=== PATIENT | male | born 1940 | race Caucasian/White ===

== ENCOUNTER 2017-05-11 16:17 | Emergency (ER) | payer MEDICARE, MEDICAID ==
[2015-01-25 13:31] VITALS: BMI 31.5
[~2017-05-11 16:17] MED LIST: ACETAMINOPHEN325 MG PO; ARICEPT10 MG PO; CELEXA10 MG PO; DYAZIDE 37.5/251 CAP PO; MEDROL DOSE PACK4 MG PO; PRILOSEC20 MG PO; PROTONIX40 MG PO; RISPERDAL0.5 MG PO; SINEMET 10/101 UDTAB PO; VITAMIN B-121000 MCG PO; VITAMIN D31000 UNI2 PO; VITAMIN D31000 UNIT PO
[2017-05-11 17:53] LABS: BASOPHILS 0.6 % (0-2); EOSINOPHILS 2.7 % (0-7); HEMATOCRIT 38.8 % (42.0-54.0); HEMOGLOBIN 12.7 g/dL (13.5-17.5); IMMATURE GRANULOCYTES 0.7 % (0-5); LYMPHOCYTES 20.4 % (15-50); MCH 30.9 pg (26.0-34.0); MCHC 32.7 g/dL (31.0-37.0); MCV 94.4 fL (80.0-100.0); MEAN PLATELET VOLUME 10.1 fL (7.4-10.4); MONOCYTES 12.3 % (2-11); NEUTROPHILS 63.3 % (40-80); RBC 4.11 10x6/uL (4.20-6.10); RDW 12.8 % (11.5-14.5); WBC 10.2 10x3/uL (4.8-10.8)
[2017-05-11 17:58] LABS: PLATELET COUNT 294 10x3/uL (130-400)
[2017-05-11 18:11] LABS: ALBUMIN 3.3 g/dL (3.4-5.0); ANION GAP 13.2 mmol/L (8-16); BILIRUBIN - TOTAL 0.23 mg/dL (0.2-1.3); CALCIUM 8.9 mg/dL (8.5-10.1); CARBON DIOXIDE 26.2 mmol/L (21.0-32.0); CREATININE - SERUM 1.7 mg/dL (0.6-1.3); POTASSIUM - SERUM 4.4 mmol/L (3.5-5.1); PROTEIN - SERUM 6.9 g/dL (6.4-8.2)
[2017-05-11 18:35] LABS: APPEARANCE CLEAR (CLEAR); BILIRUBIN NEGATIVE (NEGATIVE); COLOR YELLOW (YELLOW); GLUCOSE NEGATIVE (NEGATIVE); KETONE NEGATIVE (NEGATIVE); NITRITE NEGATIVE (NEGATIVE); PROTEIN NEGATIVE (NEGATIVE); SPECIFIC GRAVITY 1.025 (1.005-1.020); UROBILINOGEN NORMAL (NORMAL)
[2017-05-11 18:38] LABS: BACTERIA FEW /hpf (NONE SEEN); EPITHELIAL CELLS 0-5 /hpf (0-5)
== END 2017-05-11 19:06 | disposition home or self-care (01) ==
LOC: D.ER 16:17
PROVIDERS: Physician Assistant Medical
DX: L89.329 Pressure ulcer of left buttock, unspecified stage (principal); N39.0 Urinary tract infection, site not specified; K21.9 Gastro-esophageal reflux disease without esophagitis; F03.90 Unspecified dementia, unspecified severity, without behavioral disturbance, psychotic disturbance, mood disturbance, and anxiety

== ENCOUNTER 2017-08-12 05:32 | Inpatient (IN) | payer MEDICARE ==
[~2017-08-12] VITALS: Ht 177.8 cm; Wt 102.0 kg
[2017-08-12] VITALS (16 sets, daily range): BP systolic 73–118; BP diastolic 43–62; BMI 32.2
[2017-08-12 06:23] LABS: COLOR RED (YELLOW)
[2017-08-12 06:24] LABS: APPEARANCE TURBID (CLEAR); BILIRUBIN NEGATIVE (NEGATIVE); GLUCOSE NEGATIVE (NEGATIVE); KETONE NEGATIVE (NEGATIVE); NITRITE NEGATIVE (NEGATIVE); PROTEIN 3+ mg/dL (NEGATIVE); UROBILINOGEN NORMAL (NORMAL)
[2017-08-12 06:26] LABS: BASOPHILS 0 % (0-2); EOSINOPHILS 0.2 % (0-7); HEMATOCRIT 37.8 % (42.0-54.0); HEMOGLOBIN 12.4 g/dL (13.5-17.5); IMMATURE GRANULOCYTES 0.9 % (0-5); LYMPHOCYTES 4.5 % (15-50); MCH 30.8 pg (26.0-34.0); MCHC 32.8 g/dL (31.0-37.0); MCV 93.8 fL (80.0-100.0); MEAN PLATELET VOLUME 9.9 fL (7.4-10.4); MONOCYTES 0.4 % (2-11); RBC 4.03 10x6/uL (4.20-6.10); WBC 5.6 10x3/uL (4.8-10.8)
[2017-08-12 06:29] LABS: PLATELET COUNT 228 10x3/uL (130-400)
[2017-08-12 06:37] LABS: BACTERIA MODERATE /hpf (NONE SEEN); EPITHELIAL CELLS 0-5 /hpf (0-5); MUCUS <1+ /lpf (NONE SEEN); RED CELLS - URINE >50 /hpf (0-5); WHITE CELLS - URINE >50 /hpf (0-5)
[2017-08-12 07:17] LABS: ANION GAP 20.4 mmol/L (8-16); BILIRUBIN - TOTAL 0.4 mg/dL (0.2-1.3); CALCIUM 8.1 mg/dL (8.5-10.1); CARBON DIOXIDE 21.8 mmol/L (21.0-32.0); CREATININE - SERUM 2.2 mg/dL (0.6-1.3); POTASSIUM - SERUM 3.2 mmol/L (3.5-5.1); PROTEIN - SERUM 5.8 g/dL (6.4-8.2)
[2017-08-12 21:10] LABS: HEMATOCRIT 32.1 % (42.0-54.0); HEMOGLOBIN 10.6 g/dL (13.5-17.5)
[2017-08-13] VITALS (58 sets, daily range): BP systolic 85–139; BP diastolic 37–99; Ht 177.8 cm; Wt 102.0 kg
[2017-08-13 04:40] LABS: ALBUMIN 2.8 g/dL (3.4-5.0); BILIRUBIN - TOTAL 0.4 mg/dL (0.2-1.3); CALCIUM 7.9 mg/dL (8.5-10.1); CARBON DIOXIDE 25.9 mmol/L (21.0-32.0); CREATININE - SERUM 1.9 mg/dL (0.6-1.3); PROTEIN - SERUM 5.6 g/dL (6.4-8.2)
[2017-08-13 04:51] LABS: POTASSIUM - SERUM 3.9 mmol/L (3.5-5.1)
[2017-08-13 05:35] LABS: HEMATOCRIT 33.4 % (42.0-54.0); MCH 30.6 pg (26.0-34.0); MCHC 32.9 g/dL (31.0-37.0); MCV 92.8 fL (80.0-100.0); MEAN PLATELET VOLUME 10.6 fL (7.4-10.4); PLATELET COUNT 231 10x3/uL (130-400); RDW 14.7 % (11.5-14.5); WBC 36.9 10x3/uL (4.8-10.8)
[2017-08-13 06:54] LABS: LYMPHOCYTES 5 % (15-50); MONOCYTES 5 % (2-11); NEUTROPHILS 82 % (40-80)
[2017-08-13 06:57] LABS: PLATELET ESTIMATE NORMAL
[2017-08-13 07:17] LABS: APPEARANCE SLT CLOUDY (CLEAR); BILIRUBIN NEGATIVE (NEGATIVE); COLOR YELLOW (YELLOW); GLUCOSE NEGATIVE (NEGATIVE); KETONE NEGATIVE (NEGATIVE); NITRITE NEGATIVE (NEGATIVE); PROTEIN 1+ mg/dL (NEGATIVE); UROBILINOGEN NORMAL (NORMAL)
[2017-08-13 07:23] LABS: BACTERIA FEW /hpf (NONE SEEN); EPITHELIAL CELLS 0-5 /hpf (0-5); GRANULAR CAST OCC /lpf (NONE SEEN); MUCUS <1+ /lpf (NONE SEEN)
[2017-08-13 14:33] LABS: APPEARANCE - CSF COLORLESS; RBC - CSF 1 cmm (0-0)
[2017-08-14] MEDS ORDERED: LORAZEPAM1 MG/0.5 M SL (13:38)
[2017-08-14] MEDS ORDERED: TRANSDERM-SCO1 PATCH TRANSDERM (13:42)
[2017-08-14] MEDS ORDERED: MORPHINE SUL20 MG/ML SL (13:42)
[2017-08-14] MEDS ORDERED: DULCOLAX10 MG/SUPP RC (13:43)
[2017-08-14] MEDS ORDERED: ISOPTO ATROPINE5 ML SL (13:43)
[2017-08-14] MEDS ORDERED: TYLENOL650 MG RC (13:44)
[2017-08-19 17:11] LABS: AEROBE ID Final report (()); RESULT 1 Aerococcus urinae (())
== END 2017-08-13 19:16 | disposition hospice, inpatient (51) | DRG 698 ==
LOC: D.ER 05:32 → D.ICU 09:41
PROVIDERS: Emergency Medicine; Family Medicine; Internal Medicine Nephrology; Neurological Surgery
DX: T83.511A Infection and inflammatory reaction due to indwelling urethral catheter, initial encounter (principal); A41.9 Sepsis, unspecified organism; R65.21 Severe sepsis with septic shock; G93.41 Metabolic encephalopathy; N10 Acute pyelonephritis; I25.10 Atherosclerotic heart disease of native coronary artery without angina pectoris; G30.9 Alzheimer's disease, unspecified; F02.80 Dementia in other diseases classified elsewhere, unspecified severity, without behavioral disturbance, psychotic disturbance, mood disturbance, and anxiety; G31.9 Degenerative disease of nervous system, unspecified; G93.89 Other specified disorders of brain; Z72.0 Tobacco use; L89.152 Pressure ulcer of sacral region, stage 2

== ENCOUNTER 2017-08-13 17:06 | Inpatient (IN) | payer OTHER ==
[~2017-08-13] VITALS: Ht 177.8 cm; Wt 101.4 kg
--- NOTE | ~2017-08-13 | EC ---
PATIENT:FARIHA CANO DATE OF SERVICE: 08/13/17 SEX: M MEDICAL RECORD: [id number] DATE OF : 40 LOCATION:[facility] D230 AGE OF PATIENT: 77 ADMISSION DATE: 08/13/17 REFERRING PHYSICIAN: INTERPRETING PHYSICIAN: JONNATHAN CHOWDARY MD ECHOCARDIOGRAM REPORT ECHO CHARGES CLINICAL DIAGNOSIS: ECHOCARDIOGRAPHIC MEASUREMENTS (adult normal given) AC root (d.<3.7cm) cm LV Septum d (<1.2 cm> cm Valve Excursion cm LV Septum (systole) cm Left Atria (s.<4.0cm> cm LVPW d(<1.2cm) cm RV (d.<2.3cm) cm LVPW (sytole) cm LV diastole(<5.6CM) cm MV E-F(>70mm/sec) cm LV systole cm LVOT Diameter cm MV exc.(>10mm) cm Est.ejection fraction (50-75%) % Pericardial Effusion DOPPLER: LVIT cm/sec A cm/sec E cm/sec LA cm/sec RVSP mmHg LVOT cm/sec AOP1/2T m/s Asc. Ao cm/sec RVOT cm/sec RA cm/sec PA cm/sec AV Gradient Peak mmHg AV Mean mmHg AV Area cm MV Gradient Peak mmHg MV Mean mmHg MV Area cm COMMENTS: Garde [employer]anger: Scheduling Representative: QUEENIE DATE OF SERVICE: 08/13/2017 PROCEDURE: Echocardiogram. FINDINGS: 1. Left ventricle chamber size is within normal limits. Left ventricular systolic function is normal. Overall ejection fraction estimated at 60%. 2. Left atrium, right atrium, and right ventricle chamber sizes are mildly dilated. Left atrium measures 4.1 cm. 3. Valvular structures have normal structure and motion. ECHOCARDIOGRAM REPORT [id number] FARIHA CANO 4. Doppler interrogation reveals no significant valvular insufficiency or stenosis. 5. No evidence of pericardial effusion or left ventricular thrombus. TRANSINT:[id number] Voice Confirmation ID: [id number] DOCUMENT ID: [id number] JONNATHAN CHOWDARY MD CC: [id number] DICTATION DATE: 08/14/17 1005 SUPPORT SERVICE TECH: 08/14/17 1312 [place] [address]
[2017-08-13 18:52] VITALS: BP 100/55; Ht 177.8 cm; Wt 101.4 kg
[2017-08-13 19:00] VITALS: BP 77/61
[2017-08-13 23:00] VITALS: BP 82/50
[2017-08-14 03:00] VITALS: BP 99/61
[2017-08-14 07:00] VITALS: BP 102/50
[2017-08-14 11:00] VITALS: BP 114/70
[2017-08-14] MEDS ORDERED: LORAZEPAM1 MG/0.5 M SL (13:38)
[2017-08-14] MEDS ORDERED: MORPHINE SUL20 MG/ML SL (13:42)
[2017-08-14] MEDS ORDERED: TRANSDERM-SCO1 PATCH TRANSDERM (13:42)
[2017-08-14] MEDS ORDERED: ISOPTO ATROPINE5 ML SL (13:43)
[2017-08-14] MEDS ORDERED: DULCOLAX10 MG/SUPP RC (13:43)
[2017-08-14] MEDS ORDERED: TYLENOL650 MG RC (13:44)
== END 2017-08-14 14:59 | disposition home health service (06) | DRG 951 ==
LOC: D.ICU 17:06
DX: Z51.5 Encounter for palliative care (principal)